=== PATIENT | female | born 1965 | race Caucasian/White ===

== ENCOUNTER 2017-11-28 10:49 | Emergency (ER) | payer BC, OTHER ==
[2017-11-28] MEDS ORDERED: ONDANSETRON HCL INJ/PF 4 MG/2 ML SDV IV ONE (11:16)
[2017-11-28] MEDS ORDERED: NORMAL SALINE 1000 ML 1,000 ML IV ONE ×2 (11:16→13:13)
[2017-11-28] MEDS ORDERED: MORPHINE SULFATE 10 MG/ML INJ IV ONE (11:17)
--- NOTE | 2017-11-28 11:18 | ER Document Report ---
ED Medical Screen (RME) - General Chief Complaint: Abdominal Pain Stated Complaint: ABDOMINAL PAIN, BACK PAIN Time Seen by Provider: 11/28/17 11:16 Notes: Patient had gastric bypass in 2004. She presents with a week of gradually increasing severe epigastric and bilateral upper quadrant abdominal pain. She states it radiates to her back. She does have nausea and vomiting. TRAVEL OUTSIDE OF THE [place] IN LAST 30 DAYS: No - Related Data Allergies/Adverse Reactions: Penicillins Allergy (Mild, Verified 03/09/11 11:23) RASH, BREATHING DIFF Past Medical History - Social History Frequency of alcohol use: Occasional Drug Abuse: None - Past Medical History Cardiac Medical History: Denies: Hx Coronary Artery Disease, Hx Heart Attack, Hx Hypertension Pulmonary Medical History: Denies: Hx Asthma, Hx Bronchitis, Hx COPD, Hx Pneumonia Neurological Medical History: Denies: Hx Cerebrovascular Accident, Hx Seizures Renal/ Medical History: Reports: Hx Kidney Stones - lithotripsy x 6, Hx Ovarian Cysts. Denies: Hx End Stage Renal Disease, Hx Peritoneal Dialysis, Hx Pelvic Inflammatory Disease Malignancy Medical History: Denies: Hx Breast Cancer, Hx Cervical Cancer, Hx Ovarian Cancer GI Medical History: Denies: Hx Hiatal Hernia Musculoskeltal Medical History: Denies Hx Arthritis Psychiatric Medical History: Reports: Hx Attention Deficit Hyperactivity Disorder, Hx Depression Infectious Medical History: Past Surgical History: Reports: Hx Section - x 2, Hx Cholecystectomy, Hx Gastric Bypass Surgery, Hx Herniorrhaphy - incisional. Denies: Hx Appendectomy, Hx Bowel Surgery, Hx Coronary Artery Bypass Graft, Hx Hysterectomy , Hx Mastectomy, Hx Open Heart Surgery, Hx Pacemaker, Hx Tonsillectomy, Hx Tubal Ligation - Immunizations Hx Diphtheria, Pertussis, Tetanus Vaccination: Yes - 09/10/2009 Physical Exam - Vital signs Vitals: Temp Pulse Resp BP Pulse Ox 98 F 92 20 165/97 H 99 11/28/17 11:00 11/28/17 11:00 11/28/17 11:00 11/28/17 11:00 11/28/17 11:00 Course - Vital Signs Vital signs: Temp Pulse Resp BP Pulse Ox 98 F 92 20 165/97 H 99 11/28/17 11:00 11/28/17 11:00 11/28/17 11:00 11/28/17 11:00 11/28/17 11:00 Doctor's Discharge - Discharge Referrals: PAUL BARON, OFF[employer] WORKER-C [Primary Care Provider] - Follow up as needed
[2017-11-28 11:37] LABS: ABSOLUTE BASOPHILS # (AUTO) 0.1 10^3/uL (0.0-0.2); ABSOLUTE EOSINOPHILS # (AUTO) 0.1 10^3/uL (0.0-0.6); ABSOLUTE LYMPHOCYTES (AUTO) 1.2 10^3/uL (0.5-4.7); ABSOLUTE MONOCYTES (AUTO) 0.3 10^3/uL (0.1-1.4); ABSOLUTE NEUT (AUTO) 3.8 10^3/uL (1.7-8.2); BASOPHILS % (AUTO) 0.9 % (0-2); EOSINOPHILS % (AUTO) 2.3 % (0-6); HEMATOCRIT 37.9 % (36.0-47.0); HEMOGLOBIN 12.8 g/dL (12.0-15.5); LYMPHOCYTES % (AUTO) 22.4 % (13-45); MEAN CORPUSCULAR HEMOGLOBIN 34.4 pg (27.0-33.4); MEAN CORPUSCULAR HGB CONC 33.8 g/dL (32.0-36.0); MEAN CORPUSCULAR VOLUME 102 fl (80-97); PLATELET COUNT 171 10^3/uL (150-450); RED BLOOD COUNT 3.73 10^6/uL (3.72-5.28); RED CELL DISTRIBUTION WIDTH 13.3 % (11.5-14.0); SEGMENTED NEUTROPHILS % (AUTO) 68.4 % (42-78); TOTAL CELLS COUNTED % (AUTO) 100 %; WHITE BLOOD COUNT 5.5 10^3/uL (4.0-10.5)
[2017-11-28 11:42] LABS: APPEARANCE,URINE CLEAR; BILIRUBIN,URINE NEGATIVE (NEGATIVE); COLOR,URINE YELLOW; GLUCOSE, URINE 50 mg/dL (NEGATIVE); KETONES,URINE NEGATIVE (NEGATIVE); LEUKOCYTE ESTERASE,URINE NEGATIVE (NEGATIVE); NITRITE,URINE NEGATIVE (NEGATIVE); PROTEIN,URINE 30 mg/dL (NEGATIVE); URINE SPECIFIC GRAVITY 1.029; UROBILINOGEN,URINE NEGATIVE mg/dL (<2.0)
[2017-11-28 11:51] LABS: ALANINE AMINOTRANSFERASE 32 U/L (9-52); ALBUMIN 4.3 g/dL (3.5-5.0); ALKALINE PHOSPHATASE 98 U/L (38-126); ANION GAP 10 (5-19); ASPARTATE AMINO TRANSFERASE 21 U/L (14-36); BILIRUBIN,DIRECT 0.4 mg/dL (0.0-0.4); BILIRUBIN,TOTAL 0.4 mg/dL (0.2-1.3); BLOOD UREA NITROGEN 26 mg/dL (7-20); CALCIUM 9.8 mg/dL (8.4-10.2); CARBON DIOXIDE 24 mmol/L (22-30); CHLORIDE 109 mmol/L (98-107); GLUCOSE 152 mg/dL (75-110); LIPASE 210.8 U/L (23-300); POTASSIUM 4.3 mmol/L (3.6-5.0)
--- NOTE | 2017-11-28 11:56 | ER Document Report ---
ED General - General Chief Complaint: Abdominal Pain Stated Complaint: ABDOMINAL PAIN, BACK PAIN Time Seen by Provider: 11/28/17 11:16 Mode of Arrival: Ambulatory Information source: Patient Notes: 52 yo female post menopausal c/o sharp bilateral 5/5 upper abdominal pain that felt like bloating, burping alot. 1 week agp-like her GB attacks,with Nausea, vomiting, diarrhea, fever (sat and sun). Yesterday mid morning, sudden onset of sharp pain that shot through to back. Tried to stretch back, woke her up in middle of night. Motrin, gas ex, tums without relief. Nauseated when she came into ER, vomited twice because of the pain. No blood or black in diarrhea stools (last night watery) or vomit.. Seen at urgent care today, was very concerned and set her to the ER, he was afraid if was acute pancreatitis. No hx. C Diff, NO IBS, Crohns, colitis, no recent antibiotics. Does not think she strained any muscles at work. TRAVEL OUTSIDE OF THE [place] IN LAST 30 DAYS: No - Related Data Allergies/Adverse Reactions: Penicillins Allergy (Mild, Verified 03/09/11 11:23) RASH, BREATHING DIFF Past Medical History - General Information source: Patient - Social History Smoking Status: Former Smoker Frequency of alcohol use: Occasional Drug Abuse: None Occupation: post office in [place] Lives with: Family Family History: Reviewed & Not Pertinent Patient has suicidal ideation: No Patient has homicidal ideation: No - Past Medical History Cardiac Medical History: Pulmonary Medical History: Endocrine Medical History: Reports: Hx Diabetes Mellitus Type 2 - before gastric bypass-100 units insulin per day, 14 pills per day-327 lbs. Renal/ Medical History: Reports: Hx Kidney Stones - lithotripsy x 6, Hx Ovarian Cysts GI Medical History: Musculoskeltal Medical History: Psychiatric Medical History: Reports: Hx Attention Deficit Hyperactivity Disorder, Hx Depression Infectious Medical History: Past Surgical History: Reports: Hx Section - x 2, Hx Cholecystectomy - --2010, Hx Gastric Bypass Surgery - 2004, Hx Herniorrhaphy - incisional, Other - insisional hernia-mesh repair 2004 - Immunizations Hx Diphtheria, Pertussis, Tetanus Vaccination: Yes - 09/10/2009 Hx Pneumococcal Vaccination: 09/10/01 Review of Systems - Review of Systems Constitutional: No symptoms reported EENT: No symptoms reported Cardiovascular: No symptoms reported Respiratory: No symptoms reported Gastrointestinal: See HPI Genitourinary: No symptoms reported Female Genitourinary: No symptoms reported Musculoskeletal: No symptoms reported Skin: No symptoms reported Hematologic/Lymphatic: No symptoms reported Neurological/Psychological: No symptoms reported Physical Exam - Vital signs Vitals: Temp Pulse Resp BP Pulse Ox 98 F 92 20 165/97 H 99 11/28/17 11:00 11/28/17 11:00 11/28/17 11:00 11/28/17 11:00 11/28/17 11:00 Interpretation: Normal - General General appearance: Appears well, Alert In distress: None - HEENT Head: Normocephalic, Atraumatic Eyes: Normal Conjunctiva: Normal Pupils: PERRL Pharynx: Normal Neck: Supple. No: Lymphadenopathy - Respiratory Respiratory status: No respiratory distress Chest status: Tender - bilateral lower sternal margins Breath sounds: Normal Chest palpation: Normal - Cardiovascular Rhythm: Regular Heart sounds: Normal auscultation Murmur: No - Abdominal Inspection: Normal Distension: No distension Bowel sounds: Normal Tenderness: Nontender. No: Tender Organomegaly: No organomegaly - Back Back: Normal, Tender - bilateral mid thoracic muscles - Extremities General upper extremity: Normal inspection, Nontender, Normal color, Normal ROM , Normal temperature General lower extremity: Normal inspection, Nontender, Normal color, Normal ROM , Normal temperature, Normal weight bearing. No: Parveen's sign - Neurological Neuro grossly intact: Yes Cognition: Normal Orientation: AAOx4 [place] Coma Scale Eye Opening: Spontaneous Vic Coma Scale Verbal: Oriented [place] Coma Scale Motor: Obeys Commands [place] Coma Scale Total: 15 Speech: Normal Motor strength normal: LUE, RUE, LLE, RLE Sensory: Normal - Psychological Associated symptoms: Normal affect, Normal mood - Skin Skin Temperature: Warm Skin Moisture: Dry Skin Color: Normal Skin irregularity: negative: Rash Course - Re-evaluation Re-evalutation: 11/28/17 15:11 Toradol 30 mg IV reduced her pain to 0/5. She feels a lot better. Chest x-ray is negative. CT the abdomen is negative. Labs negative. - Vital Signs Vital signs: Temp Pulse Resp BP Pulse Ox 97.5 F 82 20 115/63 97 11/28/17 14:46 11/28/17 14:46 11/28/17 11:00 11/28/17 14:46 11/28/17 14:46 - Laboratory Result Diagrams: 11/28/17 11:24 11/28/17 11:24 Laboratory results interpreted by me: 11/28/17 11/28/17 11/28/17 11:24 11:24 11:24 MCV 102 H MCH 34.4 H Chloride 109 H BUN 26 H Est GFR ( Amer) 57 L Est GFR (Non-Af Amer) 47 L Glucose 152 H Urine Protein 30 H Urine Glucose (UA) 50 H Discharge - Discharge Clinical Impression: Bilateral lower sternal margin tendernes, Bilateral lower thoracic back pain Condition: Good Disposition: HOME, SELF-CARE Instructions: Abdominal Pain ([facility]), Anti-Inflammatory Medication ([facility]), Chest Wall Pain ([facility]), Upper Back Strain ([facility]) Additional Instructions: warm compress motrin to er if symptoms recur, new symptoms, any concerns See your doctor for follow-up Prescriptions: Ibuprofen [Motrin 800 mg Tablet] 800 mg PO Q8HP PRN #30 tablet PRN Reason: Ondansetron HCl [Zofran 4 mg Tablet] 1 - 2 tab PO Q4H PRN #20 tablet PRN Reason: Forms: Return to Work Referrals: PAUL BARON, FUMIGATOR AND STERILIZER-C [Primary Care Provider] - Follow up as needed
--- NOTE | 2017-11-28 12:35 | RADIOLOGY REPORT (SQ) ---
EXAM DESCRIPTION: CT ABD/PELVIS WITH IV ONLY COMPLETED DATE/TIME: 11/28/2017 12:13 pm REASON FOR STUDY: severe abd pain/hx gastric bypass COMPARISON: None. TECHNIQUE: CT scan of the abdomen and pelvis performed using helical scanning technique with dynamic intravenous contrast injection. No oral contrast. Images reviewed with lung, soft tissue, and bone windows. Reconstructed coronal and sagittal MPR images reviewed. Delayed images for evaluation of the urinary system also acquired. All images stored on PACS. All CT scanners at this facility use dose modulation, iterative reconstruction, and/or weight based d osing when appropriate to reduce radiation dose to as low as reasonably achievable (ALARA). [facility]: Dose Right [facility]: CareDose [facility]: Dose Right [facility]: Teradose 4D [facility]: Cloud Content CONTRAST TYPE AND DOSE: contrast/concentration: Isovue 370.00 mg/ml; Total Contrast Delivered: 90.0 ml; Total Saline Delivered: 70.0 ml RENAL FUNCTION: Creatinine 1.2 RADIATION DOSE: CT Rad equipment meets quality standard of care and radiation dose reduction techniq ues were employed. CTDIvol: 9.7 - 13.9 mGy. DLP: 1376 mGy-cm.. LIMITATIONS: None. FINDINGS: LOWER CHEST: No significant findings. No nodules or infiltrates. LIVER: Normal size. No masses. No dilated ducts. SPLEEN: Normal size. No focal lesions. PANCREAS: No masses. No significant calcifications. No adjacent inflammation or peripancreatic fluid collections. Pancreatic duct not dilated. GALLBLADDER: Status post cholecystectomy ADRENAL GLANDS: No significant masses or asymmetry. RIGHT KIDNEY AND URETER: No solid masses. No significant calcifications. No hydronephrosis or hyd roureter. LEFT KIDNEY AND URETER: No solid masses. No significant calcifications. No hydronephrosis or hydr oureter. AORTA AND VESSELS: No aneurysm. No dissection. Renal arteries, SMA, celiac without stenosis. RETROPERITONEUM: No retroperitoneal adenopathy, hemorrhage or masses. BOWEL AND PERITONEAL CAVITY: No masses or inflammatory changes. No free fluid or peritoneal masses. Postsurgical changes are identified in the left upper quadrant related to a gastric bypass procedure. APPENDIX: Normal. PELVIS: No mass. No free fluid. Normal bladder. ABDOMINAL WALL: No masses. No hernias. Surgical clips are identified in the anterior abdominal wall related to prior hernia repair. BONES: No significant or acute findings. OTHER: No other significant finding. IMPRESSION: NO SIGNIFICANT OR ACUTE FINDING IN THE ABDOMEN OR PELVIS ON CT SCAN WITH IV CONTRAST. F indings as noted above TECHNICAL DOCUMENTATION: JOB ID: [id number] Quality ID # [id number]: Final reports with documentation of one or more dose reduction techniques (e.g., Au tomated exposure control, adjustment of the mA and/or kV according to patient size, use of iterative reconstruction technique) 2010 [employer]- All Rights Reserved Reading location - IP/workstation name: [email or web address]
[2017-11-28] MEDS ORDERED: KETOROLAC TROMETHAMINE INJ/PF 30 MG/1 ML SDV IV ONE (13:16)
[2017-11-28] MEDS ORDERED: LANSOPRAZOLE 30 MG TAB.RAP.DR PO ONE (13:20)
--- NOTE | 2017-11-28 14:29 | RADIOLOGY REPORT (SQ) ---
EXAM DESCRIPTION: CHEST PA/LAT COMPLETED DATE/TIME: 11/28/2017 2:04 pm REASON FOR STUDY: bilateral lower sternal margin tender COMPARISON: None. EXAM PARAMETERS: NUMBER OF VIEWS: two views TECHNIQUE: Digital Frontal and Lateral radiographic views of the chest acquired. RADIATION DOSE: NA LIMITATIONS: none FINDINGS: LUNGS AND PLEURA: No opacities, masses or pneumothorax. No pleural effusion. MEDIASTINUM AND HILAR STRUCTURES: No masses or contour abnormalities. HEART AND VASCULAR STRUCTURES: Heart normal size. No evidence for failure. BONES: No acute findings. HARDWARE: Lower cervical fusion plate, clips right upper quadrant post cholecystectomy, laparoscopic tacks post ventral hernia repair OTHER: No other significant finding. IMPRESSION: NO SIGNIFICANT RADIOGRAPHIC FINDING IN THE CHEST. TECHNICAL DOCUMENTATION: JOB ID: [id number] [employer]- All Rights Reserved Reading location - IP/workstation name: [id number]
[2017-11-28 14:47] VITALS: BP 115/63
== END 2017-11-28 15:33 | disposition home or self-care (01) ==
LOC: ER 10:49
DX: M54.5 Low back pain (principal); R09.89 Other specified symptoms and signs involving the circulatory and respiratory systems; R10.10 Upper abdominal pain, unspecified; R14.2 Eructation; R11.2 Nausea with vomiting, unspecified; Z88.0 Allergy status to penicillin; Z87.891 Personal history of nicotine dependence; Z98.84 Bariatric surgery status; Z87.442 Personal history of urinary calculi; Z90.49 Acquired absence of other specified parts of digestive tract
CPT/HCPCS: 99284; 96361; 96374; 96375; 36415; 83690; 85025; 80053; 81001; 71046; 74177; J1885; J2270; J2405; J7030